=== PATIENT | male | born 1945 | race Caucasian/White ===

== ENCOUNTER → 2017-01-24 19:30 | Outpatient (CLI) | payer MEDICARE, BC ==
[2015-10-21 16:47] VITALS: BMI 23.8
[~2017-01-24 19:30] MED LIST: FLORINEF 0.1 M0.1 MG PO; SYNTHROID100 MCG PO
== END | disposition home or self-care (01) ==
LOC: D.LABREF 19:30
DX: M79.1 Myalgia (principal); Z20.5 Contact with and (suspected) exposure to viral hepatitis

== ENCOUNTER → 2018-10-27 10:55 | Outpatient (CLI) | payer MEDICARE, BC ==
[2015-10-21 16:47] VITALS: BMI 23.8
== END | disposition home or self-care (01) ==
LOC: D.RAD 10:55
DX: J01.90 Acute sinusitis, unspecified (principal)

== ENCOUNTER → 2018-12-12 10:23 | Outpatient (CLI) | payer MEDICARE ==
[2015-10-21 16:47] VITALS: BMI 23.8
[2018-12-12 11:43] LABS: CREATININE - SERUM 1.3 mg/dL (0.6-1.3)
== END | disposition home or self-care (01) ==
LOC: D.CT 10:23 → D.US 11:30
PROVIDERS: Internal Medicine Nephrology
DX: N18.3 Chronic kidney disease, stage 3 (moderate) (principal); I95.9 Hypotension, unspecified; Z68.23 Body mass index [BMI] 23.0-23.9, adult